=== PATIENT | male | born 1955 | race Caucasian/White ===

== ENCOUNTER 2016-05-17 07:14 | Inpatient (IN) | payer MEDICARE ==
[~2016-05-17] VITALS: Ht 170.2 cm; Wt 64.4 kg
[2016-05-17] VITALS (7 sets, daily range): BP systolic 89–134; BP diastolic 60–97; PULSE 62–95; RESP 14–18; TEMP 97.6–98.7; O2SAT 94–99
[~2016-05-17 07:14] MED LIST: ANDR1GEL TD; BACT800T5 PO; CLON.1 PO; EFFE37.5 PO; GABA800T PO; HYDRO10 PO; LEVO100T4 PO; SENN-15 PO; STOO100T PO; VENL37.5 PO
[2016-05-17] MEDS ORDERED: SODIUM CHLOR 0.9% 1000 ML INJ 1,000 ML IV SCH (07:24)
[2016-05-17] MEDS ORDERED: SODIUM CHLORIDE 0.9% FLUSH 10 ML FLUSH IVF PRN (07:30)
--- NOTE | 2016-05-17 07:38 | PD ---
HPI Chief Complaint: syncope Time Seen by Provider: 07:24 Travel History International Travel<30 days: No Contact w/Intl Traveler<30days: No History of Present Illness HPI This is a 60-year-old male who presents to the emergency department with a history of stage IV melanoma having completed an experimental treatment which left him with multiple side effects including hypo-pituitarism, hypothyroidism, gastroparesis, and chronic fatigue who presents to the emergency department today having had a fall. The patient reports that he's been very weak over the past several days. He was walking in the bathroom this morning and he didn't make it any fell hitting his head. He feels weak and has a moderate headache, constant, throbbing, with no associated vomiting. 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, THERMOREGULATION ISSUES) GERD: Yes Genitourinary: No Hypertension: Yes Musculoskeletal: Yes Neurologic: No Psychiatric: Yes (INSOMNIA) Reproductive: No Respiratory: No Immunizations Current: Yes Radiation Therapy: Yes (TO NECK X5 TREATMENTS) Thyroid Disease: Yes Past Surgical History Abdominal Surgery: Yes (APPENDECTOMY) Appendectomy: Yes Other Surgery: Yes (SCALP RESECTION, L&R NECK TOT LYMPH NODE RESECT) Social History Alcohol Use: No Tobacco Use: No Substance Use: No Allergies-Medications (Allergen,Severity, Reaction): Coded Allergies: Lexapro (Verified Allergy, Severe, SEIZURES, 05/17/16) *MDRO Multi-Drug Resistant Organism (Verified Adverse Reaction, Unknown, ) MRSA PCR screen (nares) POSITIVE - 09/14/15 Reported Meds & Prescriptions Reported Meds & Active Scripts Active Reported Oxycodone-Acetaminophen 10-325 mg Tab 1 Tab PO Q4H PRN Effexor (Venlafaxine HCl) 37.5 Mg Tab 37.5 Mg PO DAILY Review of Systems Except as stated in HPI: all other systems reviewed are Neg Physical Exam Narrative GENERAL: Chronically ill-appearing SKIN: Dry with skin tenting HEAD: Atraumatic. Normocephalic, temporal wasting. EYES: Pupils equal and round. No injection or drainage. ENT: Dry mucous membranes NECK: Trachea midline. CARDIOVASCULAR: Regular rate and rhythm. No murmur appreciated. RESPIRATORY: Clear to auscultation. Breath sounds equal bilaterally. GASTROINTESTINAL: Abdomen soft, non-tender, nondistended. MUSCULOSKELETAL: No obvious deformities. NEUROLOGICAL: Awake and alert. No obvious cranial nerve deficits. Moving all extremities. PSYCHIATRIC: Awake to answer questions, somnolent but also makes poor eye contact, depressed mood Data Data Last Documented VS Vital Signs Date Time Temp Pulse Resp B/P Pulse Ox O2 Delivery O2 Flow Rate FiO2 05/17/16 07:57 16 99 Room Air 05/17/16 07:47 56 05/17/16 07:42 97.6 102/67 Orders Complete Blood Count With Diff (05/17/16 07:24) Comprehensive Metabolic Panel (05/17/16 07:24) Thyroid Stimulating Hormone (05/17/16 07:24) Urinalysis - C+S If Indicated (05/17/16 07:24) Ct Brain W/O Iv Contrast(Rout) (05/17/16 07:24) Blood Glucose (05/17/16 07:24) Ecg Monitoring (05/17/16 07:24) Iv Access Insert/Monitor (05/17/16 07:24) Oximetry (05/17/16 07:24) Sodium Chloride 0.9% Flush (Ns Flush) (05/17/16 07:30) Sodium Chlor 0.9% 1000 Ml Inj (Ns 1000 M (05/17/16 07:24) Labs Laboratory Tests Test 05/17/16 07:27 White Blood Count 4.7 TH/MM3 Red Blood Count 4.60 MIL/MM3 Hemoglobin 12.4 GM/DL Hematocrit 37.0 % Mean Corpuscular Volume 80.3 FL Mean Corpuscular Hemoglobin 26.9 PG Mean Corpuscular Hemoglobin 33.6 % Concent Red Cell Distribution Width 14.5 % Platelet Count 196 TH/MM3 Mean Platelet Volume 8.6 FL Neutrophils (%) (Auto) 61.2 % Lymphocytes (%) (Auto) 27.8 % Monocytes (%) (Auto) 5.9 % Eosinophils (%) (Auto) 2.2 % Basophils (%) (Auto) 2.9 % Neutrophils # (Auto) 2.9 TH/MM3 Lymphocytes # (Auto) 1.3 TH/MM3 Monocytes # (Auto) 0.3 TH/MM3 Eosinophils # (Auto) 0.1 TH/MM3 Basophils # (Auto) 0.1 TH/MM3 CBC Comment DIFF FINAL Differential Comment Sodium Level 139 MEQ/L Potassium Level 3.7 MEQ/L Chloride Level 102 MEQ/L Carbon Dioxide Level 26.6 MEQ/L Anion Gap 10 MEQ/L Blood Urea Nitrogen 18 MG/DL Creatinine 1.20 MG/DL Estimat Glomerular Filtration 62 ML/MIN Rate Random Glucose 89 MG/DL Calcium Level 8.9 MG/DL Total Bilirubin 0.3 MG/DL Aspartate Amino Transf 35 U/L (AST/SGOT) Alanine Aminotransferase 21 U/L (ALT/SGPT) Alkaline Phosphatase 33 U/L Total Protein 6.5 GM/DL Albumin 3.5 GM/DL Thyroid Stimulating Hormone 11.600 uIU/ML 3rd Gen [facility] Medical Decision Making Medical Screen Exam Complete: Yes Emergency Medical Condition: Yes Interpretation(s) Afebrile, no tachycardia, normotensive No leukocytosis Electrolytes are reassuring TSH is 11.6 EKG: sinus bradycardia, QTc 489 Differential Diagnosis Syncope, arrhythmia, electrolyte abnormality, hypothyroidism Narrative Course This is a 60-year-old male who presents to the emergency department having had an episode of syncope hitting his head this morning. He has a reported history of multiple chronic complications of an experimental agent that he was treated with for metastatic melanoma. Patient also has a significant psychiatric history with a suicide attempt in 2016. Here he was placed on a monitor and an IV was established. On physical exam he appears depressed with poor eye contact , lowered speech, hopelessness and helplessness. EKG demonstrated sinus bradycardia with a QTC of 489. He is on Effexor which is a QT prolonging agents. Labs were reassuring except for elevated TSH likely in the setting of significant hypothyroidism. Patient will be admitted for syncope in the setting of a prolonged QT, and we can restart his Synthroid and consult psychiatry regarding a change in his psychiatric medications. Diagnosis Primary Impression: Syncope Qualified Code: R55 - Syncope, unspecified syncope type Additional Impression: Prolonged QT interval Admitting Information Admitting Physician Requests: Admit Chloé Spivey MD May 17, 2016 07:38
[2016-05-17 07:43] LABS: AUTOMATED NEUTROPHIL # 2.9 TH/MM3 (1.8-7.7); BASOPHIL # 0.1 TH/MM3 (0-0.2); BASOPHIL % 2.9 % (0.0-2.0); EOSINOPHIL # 0.1 TH/MM3 (0-0.4); EOSINOPHIL % 2.2 % (0.0-4.0); HEMO FLAGS DIFF FINAL; LYMPH % 27.8 % (9.0-44.0); LYMPHOCYTE # 1.3 TH/MM3 (1.0-4.8); MEAN CELL VOLUME 80.3 FL (80.0-100.0); MEAN CORPUSCULAR HEMOGLOBIN 26.9 PG (27.0-34.0); MEAN CORPUSCULAR HGB CONC 33.6 % (32.0-36.0); MONO % 5.9 % (0.0-8.0); NEUT % 61.2 % (16.0-70.0); PLATELET COUNT 196 TH/MM3 (150-450); RED CELL DISTRIBUTION WIDTH 14.5 % (11.6-17.2); WHITE BLOOD COUNT 4.7 TH/MM3 (4.0-11.0)
[2016-05-17 07:51] LABS: CHLORIDE 102 MEQ/L (98-107); POTASSIUM 3.7 MEQ/L (3.5-5.1); SODIUM (NA) 139 MEQ/L (136-145)
[2016-05-17 07:55] LABS: ANION GAP 10 MEQ/L (5-15); BICARBONATE 26.6 MEQ/L (21.0-32.0); BLOOD UREA NITROGEN 18 MG/DL (7-18)
[2016-05-17 07:58] LABS: ALT (GPT) 21 U/L (12-78); AST (GOT) 35 U/L (15-37); GLOMERULAR FILTRATION RATE 62 ML/MIN (>89)
[2016-05-17 08:00] LABS: TOTAL BILIRUBIN ADULT 0.3 MG/DL (0.2-1.0)
[2016-05-17 08:01] LABS: ALKALINE PHOSPHATASE 33 U/L (45-117)
[2016-05-17] MEDS ORDERED: OXYC1TAB36 PO (08:15)
[2016-05-17] MEDS ORDERED: VENL37.5 PO (08:15)
--- NOTE | 2016-05-17 08:25 | RADHPO ---
EXAM DATE/TIME: 05/17/2016 07:59 [facility] COMPARISON: CT BRAIN W/O CONTRAST, October 16, 2013, 1:04. INDICATIONS : Altered mental status. RADIATION DOSE: 62.49 CTDIvol (mGy) MEDICAL HISTORY : Cardiovascular disease. Neck cancer SURGICAL HISTORY : None. ENCOUNTER: Initial ACUITY: 1 day PAIN SCALE: 2/10 LOCATION: cranial TECHNIQUE: Multiple contiguous axial images were obtained of the head. Using automated exposure control and adj ustment of the mA and/or kV according to patient size, radiation dose was kept as low as reasonably a chievable to obtain optimal diagnostic quality images. FINDINGS: CEREBRUM: The ventricles are normal for age. No evidence of midline shift, mass lesion, hemorrhage or acute in farction. No extra-axial fluid collections are seen. POSTERIOR FOSSA: The cerebellum and brainstem are intact. The 4th ventricle is midline. The cerebellopontine angle i s unremarkable. EXTRACRANIAL: The visualized portion of the orbits is intact. SKULL: There is soft tissue swelling over the left orbit without fracture. CONCLUSION: Intracranial contents are unremarkable. Soft tissue swelling left orbit without fracture.. Julio Chan MD FACR on May 17, 2016 at 8:22 Board Certified Radiologist. This report was verified electronically.
[2016-05-17] MEDS ORDERED: ACETAMINOPHEN 325 MG TAB PO PRN (11:00)
[2016-05-17] MEDS ORDERED: NALOXONE HCL 0.4 MG/ML AMP IV PRN (11:00)
[2016-05-17] MEDS ORDERED: MAGNESIUM HYDROXIDE SUSP 30 ML CUP PO PRN (11:00)
[2016-05-17] MEDS ORDERED: SODIUM CHLORIDE 0.9% FLUSH 10 ML FLUSH IV FLUSH PRN (11:00)
[2016-05-17] MEDS ORDERED: ONDANSETRON HCL 4 MG/2 ML VIAL IVP PRN (11:00)
--- NOTE | 2016-05-17 11:55 | RADHPO ---
EXAM DATE/TIME: 05/17/2016 11:37 [facility] COMPARISON: CHEST SINGLE AP, September 15, 2015, 3:56. INDICATIONS : Mid lower chest, mid upper abdomen pain MEDICAL HISTORY : None. SURGICAL HISTORY : None. ENCOUNTER: Subsequent ACUITY: 1 day PAIN SCORE: 8/10 LOCATION: Bilateral lower chest middle FINDINGS: Surgical clips are seen in the apex of the left lung. Right lung is clear. Heart and pulmonary vasc ularity are normal. Portion of bony skeleton visualized is unremarkable. CONCLUSION: Negative for acute process. Julio Chan MD FACR on May 17, 2016 at 11:50 Board Certified Radiologist. This report was verified electronically.
[2016-05-17] MEDS ORDERED: LEVOTHYROXINE SODIUM 75 MCG TAB PO SCH (12:00)
[2016-05-17 12:27] LABS: CREATINE KINASE 98 U/L (39-308)
[2016-05-17] MEDS: ENOXAPARIN SODIUM 40 MG/0.4 ML SYRINGE SQ SCH (13:24)
[2016-05-17] MEDS: FLUDROCORTISONE ACETATE 0.1 MG TAB PO SCH (13:24)
[2016-05-17] MEDS: oxyCODONE/ACETAMINOPHEN 10 MG/325 MG TAB PO PRN ×3 (13:24→22:30)
[2016-05-17] MEDS: SODIUM CHLOR 0.9% 1000 ML INJ 1,000 ML IV SCH (13:27)
[2016-05-17 16:00] LABS: FREE T3 1.72 PG/ML (2.18-3.98); FREE T4 0.35 NG/DL (0.76-1.46)
--- NOTE | 2016-05-17 16:28 | HHI.HP ---
[facility] Baylee Lorenzo MD Admission Diagnosis syncope, prolonged qt Diagnoses: Travel History International Travel<30 Days: No Contact w/Intl Traveler <30 Da: No Traveled to Known Affected Are: No History of Present Illness This is a 60-year-old male with past medical history of metastatic multiple myeloma status post resection from shoulder scalp and lymph node dissection of neck in 2007, previous self-inflicted suicide attempt with laceration to neck and severing of carotid artery in August 2015, 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 The patient is supposed to be on hydrocortisone as well as Synthroid however he stopped taking those many months ago because he felt they were not helping. The patient states he has seen numerous psychiatrists as well as aquatic director. His primary care physician is Dr. Lorenzo. Currently he takes only Percocet 10 mg as needed for chronic neck pain as well as Effexor 37.5 mg daily. He states his psychiatrist wants him to take a higher dose but that he declines to do so. His main complaint is that he has been getting dizzy when he stands up and that it's taking longer for the dizziness to go away. The dizziness disease by sitting down. The patient states that he supposes this is the effect of him not taking his hydrocortisone. He used to take 10 mg twice a day and used to take Synthroid 125 g daily. The patient also notes that he has been getting more depressed recently and denies any suicidal ideation or plan. However he states he does get teary. Several times during the interview he makes offhanded comments such as "that would be fine if I ." In reference to his prolonged QTc interval. In the emergency department he was found to be significantly orthostatic. He also was noted to have a prolonged QTc interval which is a new finding on his EKG. He scored high on the sad assessment by the nurse and per the nurse he has refused to allow her to look inside his bag. The nurse also noticed scars on his right arm which the patient states was self-inflicted in August. He also indicated to both me and his nurse that his left him this morning. Review of Systems Constitutional: COMPLAINS OF: Chills, Dizziness, DENIES: Fever Endocrine: COMPLAINS OF: Heat/cold intolerance (the patient complains of sweating episodes and feeling cold at times) Eyes: DENIES: Diplopia Ears, nose, mouth, throat: DENIES: Throat pain, Hoarseness Respiratory: DENIES: Cough, Shortness of breath Cardiovascular: COMPLAINS OF: Syncope, DENIES: Chest pain, Palpitations, Dyspnea on Exertion Gastrointestinal: COMPLAINS OF: Abdominal pain (the patient complains of chronic abdominal pain which is epigastric.), Nausea, DENIES: Diarrhea, Vomiting Musculoskeletal: COMPLAINS OF: Muscle aches, Neck pain (patient complains of chronic neck pain related to his radical cervical lymph node dissection) Integumentary: DENIES: Pruritus, Rash Hematologic/lymphatic: DENIES: Lymphadenopathy Neurologic: COMPLAINS OF: Headache (patient currently complains of headache), DENIES: Localized weakness Psychiatric: COMPLAINS OF: Depression (patient states that he has been getting "more teary" then usual however he denies suicidal ideation or plans to harm himself), DENIES: Confusion, Suicidal Ideation Past Family Social History Past Medical History Self-inflicted right carotid artery laceration, tracheal laceration and bilateral arm laceration in August 2015 Chronic pain syndrome Hypopituitarism from side effects of chemotherapy Stage IV melanoma in remission status post multiple resections, radiation to the neck Noncompliance Depression Past Surgical History Melanoma resection from scalp, right shoulder, appendectomy, cholecystectomy, repair of right carotid artery laceration and laceration to trachea as well as multiple arm lacerations Reported Medications Allergies Coded Allergies Type Severity Reaction Last Updated Verified Lexapro Allergy Severe SEIZURES 05/17/16 Yes *MDRO Multi-Drug Resistant Organism Adverse Reaction Unknown 05/17/16 Yes Active Scripts Medications Dose Route/Sig Days Date Category Oxycodone-Acetaminophen 10-325 mg Tab 1 Tab PO Q4H PRN 05/17/16 Reported Effexor (Venlafaxine HCl) 37.5 Mg Tab 37.5 Mg PO DAILY 05/17/16 Reported Allergies: Coded Allergies: Lexapro (Verified Allergy, Severe, SEIZURES, 05/17/16) *MDRO Multi-Drug Resistant Organism (Verified Adverse Reaction, Unknown, ) MRSA PCR screen (nares) POSITIVE - 09/14/15 Family History Reviewed and noncontributory Social History As per history of present illness. Currently denies any alcohol or drug use. Physical Exam Vital Signs Vital Signs Date Time Temp Pulse Resp B/P Pulse Ox O2 Delivery O2 Flow Rate FiO2 05/17/16 12:00 95 98/86 106/77 05/17/16 12:00 97.7 70 18 134/97 99 05/17/16 09:24 56 16 131/79 61 17 89/60 05/17/16 09:00 66 16 114/84 99 Room Air 05/17/16 07:57 16 99 Room Air 05/17/16 07:47 56 16 99 Room Air 05/17/16 07:42 97.6 62 16 102/67 97 Physical Exam GENERAL: This is a pale lean male gentleman in no apparent distress. SKIN: Warm and dry. Multiple scars over neck. HEAD: The patient has a scalp scar with deformity of the top of his skull. Left eye periorbital ecchymosis and swelling of the upper eyelid. EYES: No scleral icterus. No injection or drainage. NECK: Supple, trachea midline. No JVD or lymphadenopathy. CARDIOVASCULAR: Regular rate and rhythm without murmurs, gallops, or rubs. RESPIRATORY: Breath sounds equal and clear to auscultation bilaterally. No accessory muscle use. GASTROINTESTINAL: Abdomen soft, non-tender, nondistended. EXTREMITIES: No cyanosis, or edema. NEUROLOGICAL: Awake, alert, and oriented x 3. Non-focal. Laboratory Laboratory Tests Test 05/17/16 05/17/16 07:27 11:10 White Blood Count 4.7 Red Blood Count 4.60 Hemoglobin 12.4 Hematocrit 37.0 Mean Corpuscular Volume 80.3 Mean Corpuscular Hemoglobin 26.9 Mean Corpuscular Hemoglobin 33.6 Concent Red Cell Distribution Width 14.5 Platelet Count 196 Mean Platelet Volume 8.6 Neutrophils (%) (Auto) 61.2 Lymphocytes (%) (Auto) 27.8 Monocytes (%) (Auto) 5.9 Eosinophils (%) (Auto) 2.2 Basophils (%) (Auto) 2.9 Neutrophils # (Auto) 2.9 Lymphocytes # (Auto) 1.3 Monocytes # (Auto) 0.3 Eosinophils # (Auto) 0.1 Basophils # (Auto) 0.1 CBC Comment DIFF FINAL Differential Comment Sodium Level 139 Potassium Level 3.7 Chloride Level 102 Carbon Dioxide Level 26.6 Anion Gap 10 Blood Urea Nitrogen 18 Creatinine 1.20 Estimat Glomerular Filtration 62 Rate Random Glucose 89 Calcium Level 8.9 Total Bilirubin 0.3 Aspartate Amino Transf 35 (AST/SGOT) Alanine Aminotransferase 21 (ALT/SGPT) Alkaline Phosphatase 33 Total Protein 6.5 Albumin 3.5 Thyroid Stimulating Hormone 11.600 3rd Gen Total Creatine Kinase 98 Troponin I LESS THAN 0.02 Free Thyroxine 0.35 Free Triiodothyronine (T3) 1.72 pg/dL Result Diagram: 05/17/16 0727 05/17/1627 Imaging Initial EKG shows normal sinus rhythm with a prolonged QTc interval of 488 ms, second EKG shows normal sinus rhythm with prolonged QTC interval of 470 ms. Assessment and Plan Assessment and Plan -Dizziness and falls, with syncope. I suspect related to the orthostatic hypotension. Cannot rule out arrhythmia given the prolonged QTC syndrome. We' ll continue with IV fluid hydration, serial orthostatic vital signs. We'll restart him on hydrocortisone 10 mg twice a day. The patient is agreeable to restarting the hydrocortisone and seems to understand that this is likely causing his orthostasis. I will obtain an echocardiogram as well. Consider cardiology consultation. -Depression. The patient denies overt symptoms of suicidality however when I mentioned the dangers effective prolonged QTC which is possibly a side effect from the Effexor and how this may put him at risk for malignant arrhythmias the patient states "that would be fine" he is not allowing the nurse to look inside his bag and he scored high on this that assessment. Because of this I think it would be prudent to order a sitter and suicide precautions while psychiatry consultation is pending. Obviously we are holding his Effexor because of the possible association with the QTC prolongation. Patient is agreeable psychiatry consultation although he notes that he has had problems with Lexapro in the past. He does feel that the Effexor low dose has helped his mood and he states he has been compliant with it. -QTC prolongation. He is on a low dose of Effexor. He denies taking this other than as prescribed. This QTC prolongation is improved on second EKG. We' ll continue on telemetry monitoring and obtain a third EKG. Continue to hold Effexor. -Hypothyroidism, noncompliance. We'll resume him on his previous dose of 125 g of Synthroid daily. I did discuss with the patient that untreated hypothyroidism can worsen signs of depression. The patient is agreeable to restarting his Synthroid. -Chronic neck pain. Continue him on his Percocet. The patient notes that he has been taking an extra half tab as needed for breakthrough pain but has not disclosed this to his pain medicine physician yet. He does request an additional half tab in the morning. We'll give him oxycodone 5 mg in the morning. I did encourage him to discuss his pain regimen with his pain management physician after discharge from the hospital. -History of stage IV melanoma in remission, the patient has undergone multiple resections and radical cervical lymph node dissection as well as chemotherapy s/ p ipilimumab with the last course being in 2007. He currently does not follow with an oncologist. -Abdominal pain. He states he was diagnosed with esophagitis which was caused by potassium supplementation he was given in [facility] over January. The patient declines to take any PPI. He attributes the abdominal pain to gastroparesis. He denies any vomiting but does endorse occasional nausea. He does not take Reglan. He is tolerating regular diet at this time. -DVT prophylaxis with ambulation. Nguyen Quinones MD May 17, 2016 16:28
[2016-05-17 17:34] LABS: CREATINE KINASE 91 U/L (39-308)
[2016-05-17] MEDS: SODIUM CHLORIDE 0.9% FLUSH 10 ML FLUSH IV FLUSH SCH (21:00)
[2016-05-17] MEDS: HYDROCORTISONE 10 MG TAB PO SCH (22:30)
--- NOTE | 2016-05-17 23:55 | EKG ---
Date Performed: 05/17/2016 Time Performed: 17:16:18 PTAGE: 60 years EKG: Sinus rhythm . Poor R wave progression - probable normal variant Borderline ECG PREVIOUS TRACING : 05/17/2016 11.25 DOCTOR: Sarita Cowart Interpretating Date/Time 05/17/2016 23:53:57
[2016-05-18] VITALS: BP 136/91; PULSE 82; RESP 20; TEMP 98.1; O2SAT 99
--- NOTE | 2016-05-18 00:08 | EKG ---
Date Performed: 05/17/2016 Time Performed: 11:25:00 PTAGE: 60 years EKG: Sinus rhythm . Prolonged QT interval Poor R wave progression - probable normal variant Borderline ECG PREVIOUS TRACING : 05/17/2016 07.23 DOCTOR: Sarita Cowart Interpretating Date/Time 05/18/2016 00:06:17
--- NOTE | 2016-05-18 00:12 | EKG ---
Date Performed: 05/17/2016 Time Performed: 07:23:12 PTAGE: 60 years EKG: Sinus bradycardia Prolonged QT interval Borderline ECG PREVIOUS TRACING : 10/16/2013 00.15 DOCTOR: Sarita Cowart Interpretating Date/Time 05/18/2016 00:09:56
[2016-05-18] MEDS: oxyCODONE/ACETAMINOPHEN 10 MG/325 MG TAB PO PRN ×4 (02:42→15:20)
[2016-05-18 04:14] VITALS: BP 129/70; PULSE 88; RESP 16; TEMP 98; O2SAT 99
[2016-05-18] MEDS ORDERED: LEVOTHYROXINE SODIUM 75 MCG TAB PO SCH (06:00)
--- NOTE | 2016-05-18 07:07 | PD.CONS ---
Provisional Diagnosis Admission Date May 17, 2016 at 08:49 [place] I. 1. Dysthymia Rule out some degree of overlying adjustment reaction Also rule out component of mood disorder due to general medical condition, namely hypothyroidism [place]. 1. Some cluster C personality traits History of Present Illness Service Psychiatry Consult Requested By Dr. Quinones Reason for Consult QTc prolongation with Effexor; recs for alternatives. Primary Care Physician Baylee Lorenzo MD HPI Mr. Ozuna is a 60 year-old male with a history of depressive disorder who presented to the ED yesterday with complaints of syncope. QTc was initially significantly prolonged at 488ms. Patient was subsequently admitted under Dr. Quinones. Orthostasis is suspected as the etiology of patient's presenting symptoms, but the QTc has shortened off of patient's Effexor, and contribution from long-QT cannot be ruled out. Reviewing the electronic medical record, I note that the patient was admitted psychiatrically in September of last year, chiefly under Dr. Sylvester, following a suicide attempt by cutting. It appears he was stabilized at that time with his same dose of Effexor augmented with low-dose Remeron and Abilify. Additionally, I had seen the patient in consultation while he was on the medical floor before being transferred to the inpatient psychiatric unit during that hospitalization. Patient seen and examined. Chart reviewed. Sitter at the bedside. On my examination today, the patient presents as somewhat dysphoric. He reports that he has been having dizziness when standing for the last 1-2 years but came into the hospital because he became dizzy and "fell on my face" and sustained a black eye on the left. Patient reports that prior to admission he had continued to take his Effexor 37.5 mg daily, although it had been several months since he had seen his psychiatrist and so he was trying to stretch out his supply by taking some 75 mg tablets that he had every other day. Patient relates that his has recently filed for divorce and just before he was hospitalized she began packing up her things to leave. Consequently, patient describes his mood as "not a happy camper." He denies any hopeless or worthless feelings. He denies any suicidal ideation, intent or plan. The patient had apparently made some comments about it being fine if he to Dr. Quinones, but the patient insists now that he was just joking and says that he uses a dark sense of humor to cope. He does come across as somewhat wry and sarcastic at times. He says that he wants to live to pursue his hobbies, which include fishing. No hypomanic or manic symptoms. He denies audiovisual hallucinations. I can elicit no delusional beliefs. He does have some degree of somatic preoccupation, although he does seem to have a variety of medical issues and so these may be genuine concerns. The remainder of the psychiatric ROS is negative. Past psychiatric history: Patient has a history of depression. He is followed on an outpatient basis by a Dr. Jones, but patient says that he hasn't seen a provider in several months. He denies any interval psychiatric admissions or suicide attempts. He was following with a psychotherapist. He reports that he feels that he has done the best with the Effexor, and he is resistant to changing medications now. Family history: Patient reports a brother with schizophrenia who also completed suicide. No other family psychiatric history. Chemical dependency history: Patient denies any abuse of drugs or alcohol. Social history: This is unchanged from my previous assessment except that patient's of 26 years is now asking for divorce and apparently moved out of the house yesterday. The patient is disabled with no children. With the patient's permission, I did place a call to his , Rubia Ozuna, for collateral at the number listed in the EMR. I left a voicemail requesting a call back. Review of Systems Except as stated in HPI: all other systems reviewed are Neg (and below) Endocrine: COMPLAINS OF: Heat/cold intolerance Gastrointestinal: COMPLAINS OF: Abdominal pain Past Family Social History Coded Allergies: Lexapro (Verified Allergy, Severe, SEIZURES, 05/17/16) *MDRO Multi-Drug Resistant Organism (Verified Adverse Reaction, Unknown, ) MRSA PCR screen (nares) POSITIVE - 09/14/15 Past Medical History See EMR. Patient has a history of advanced melanoma status post experimental chemotherapeutic treatment. Reported Medications Oxycodone-Acetaminophen 10-325 mg Tab1 Tab PO Q4H PRN (PAIN) Ref 0 05/17/16 Venlafaxine (Effexor)37.5 Mg Tab37.5 Mg PO DAILY #60 TAB Ref 0 05/17/16 Current Medications Medications (Trade) Dose Ordered Sig/Alireza Route Start Time Stop Time Status Last Admin (NS 1000 ml Inj) 1,000 ml @ 100 mls/hr Q10H IV 05/17/16 10:50 05/17/16 13:27 (NS Flush) 2 ml UNSCH PRN IV FLUSH 05/17/16 11:00 (NS Flush) 2 ml BID IV FLUSH 05/17/16 21:00 05/17/16 21:00 (Tylenol) 650 mg Q4H PRN PO 05/17/16 11:00 (Zofran Inj) 4 mg Q6H PRN IVP 05/17/16 11:00 (Milk Of Magnesia Liq) 30 ml Q12H PRN PO 05/17/16 11:00 (Lovenox Inj) 40 mg Q24H SQ 05/17/16 12:00 05/17/16 13:24 (Narcan Inj) 0.4 mg UNSCH PRN IV 05/17/16 11:00 (Florinef) 0.1 mg DAILY PO 05/17/16 12:00 05/17/16 13:24 (Percocet 10-325 Mg) 1 tab Q4H PRN PO 05/17/16 12:30 05/18/16 06:21 (Synthroid) 125 mcg DAILY@0600 PO 05/18/16 06:00 05/18/16 06:20 (Cortef) 10 mg BID PO 05/17/16 21:00 05/17/16 22:30 (Roxicodone) 5 mg DAILY PO 05/18/16 09:00 Family History See above Social History See above Patient's Strengths (min. 2) Intelligent. Verbally fluent. Physical Exam Physical examination completed by primary team. On my examination today, patient is somewhat ill-appearing. There appears to be some sort of chronic deformity in his skull. He has a black eye on the left. No motoric abnormalities noted. Laboratories reviewed: Vital Signs Vital Signs Date Time Temp Pulse Resp B/P Pulse Ox O2 Delivery O2 Flow Rate FiO2 05/18/16 04:14 98.0 88 16 129/70 99 05/17/16 09:00 Room Air I/O 05/17/16 05/17/16 05/18/16 08:00 16:00 00:00 Intake Total 1000 ml 240 ml Balance 1000 ml 240 ml Lab Results Item Value Date Time White Blood Count 4.7 TH/MM3 05/17/16726 Hemoglobin 12.4 GM/DL L 05/17/16726 Platelet Count 196 TH/MM3 05/17/16726 Sodium Level 139 MEQ/L 05/17/16726 Potassium Level 3.7 MEQ/L 05/17/16726 Chloride Level 102 MEQ/L 05/17/16726 Carbon Dioxide Level 26.6 MEQ/L 05/17/16726 Blood Urea Nitrogen 18 MG/DL 05/17/16726 Creatinine 1.20 MG/DL 05/17/16726 Thyroid Stimulating Hormone 3rd Gen 11.600 uIU/ML H 05/17/16726 Aspartate Amino Transf (AST/SGOT) 35 U/L 05/17/16726 Alanine Aminotransferase (ALT/SGPT) 21 U/L 05/17/16726 Alkaline Phosphatase 33 U/L L 05/17/16726 Free Thyroxine 0.35 NG/DL L 05/17/16 1110 Free Triiodothyronine (T3) pg/dL 1.72 PG/ML L 05/17/[address] was read as no acute intracranial process Mental Status Examination Patient is in hospital gown. He is somewhat disheveled but maintaining basic hygiene. He is awake and alert and oriented 3. No evidence of delirium. No abnormal motor movements noted. Speech is within normal limits for rate, tone and volume. Language and fund of knowledge seemed average or slightly above average. Mood is somewhat dysphoric and affect is restricted. Thought process linear. No loosening of associations. No evident delusions. Denies audiovisual hallucinations. Denies suicidal ideation, intent or plan. Denies homicidal ideation, intent or plan. Insight and judgment seem fair to fair-to- poor. Assessment & Plan Problem List: (1) Dysthymia ICD Code: F34.1 Assessment & Plan This is a 60-year-old male with psychiatric history as detailed above who presented day before yesterday to the ED with complaints of syncope, possibly due to orthostatic hypotension. Psychiatry is consulted because patient's QTc was noted to be significantly prolonged, and there was concern that this could be contributing to his syncope and also could be related to his Effexor. Patient's QTc has subsequently shortened since Effexor has been held, and Effexor is occasionally associated with QTc prolongation in the literature. If Effexor is felt to be causative agent for QTc prolongation, and if degree of QTc prolongation is felt to be clinically significant, patient would likely benefit from a switch to a different agent. He reports a history of poor response to Lexapro, but he apparently tolerated Remeron well on the inpatient unit. Given the complexity of the case, I have strongly recommended that the patient consider voluntary psychiatric hospitalization following medical stabilization for this purpose, but he has declined. He presently denies SI or HI, and his degree of psychiatric symptomatology is not so severe at present that I can support involuntary psychiatric hospitalization at this time. However, I do believe he is at chronic, if not acute or imminent, elevated risk for self-harm owing to several risk factors including chronic pain conditions reportedly related to his history of cancer treatment. I believe his psychiatric issues can be managed best at this time by taking the following steps: --Given good history of tolerability with Remeron, consider placing the patient back on Remeron 15mg qHS. Although many psychotropics can be associated with some degree of QTc prolongation, and Remeron is no different in this regard, it is rarely associated with this issue. I would recheck an EKG after 2-3 doses to see if there is any QTc prolongation. --Patient should be scheduled with close follow up with outpatient psychiatrist , ideally within 7-10 days of discharge. --If the patient is willing to reconsider voluntary psychiatric hospitalization for stabilization on medications, I would be highly supportive of this. --I will ask Dr. Valencia to follow up if the patient remains inpatient next week. Thank you for this consultation. Discharge Planning Per primary team. Pt does not meet BA criteria at this time and is declining voluntary hospitalization. Request HC Surrog/Guard Advoc?: No Faraz Torres MD May 18, 2016 07:06
[2016-05-18 07:33] LABS: BASOPHIL % 1.1 % (0.0-2.0); EOSINOPHIL # 0.1 TH/MM3 (0-0.4); HEMATOCRIT 36.5 % (39.0-51.0); HEMO FLAGS DIFF FINAL; LYMPH % 32.2 % (9.0-44.0); LYMPHOCYTE # 1.1 TH/MM3 (1.0-4.8); MEAN CELL VOLUME 81.2 FL (80.0-100.0); MONO % 8.2 % (0.0-8.0); NEUT % 56.5 % (16.0-70.0); PLATELET COUNT 214 TH/MM3 (150-450); RED CELL DISTRIBUTION WIDTH 14.4 % (11.6-17.2); WHITE BLOOD COUNT 3.5 TH/MM3 (4.0-11.0)
[2016-05-18 07:47] LABS: BICARBONATE 26.8 MEQ/L (21.0-32.0)
[2016-05-18 08:00] VITALS: BP 116/80; PULSE 89; RESP 16; TEMP 98.5; O2SAT 97
[2016-05-18] MEDS: FLUDROCORTISONE ACETATE 0.1 MG TAB PO SCH (09:10)
[2016-05-18] MEDS: HYDROCORTISONE 10 MG TAB PO SCH (09:11)
[2016-05-18] MEDS: SODIUM CHLORIDE 0.9% FLUSH 10 ML FLUSH IV FLUSH SCH (09:11)
[2016-05-18 09:54] LABS: BLOOD, URINE TRACE (NEG); GLUCOSE,URINE NEG (NEG); KETONE, URINE TRACE mg/dL (NEG); NITRITE,URINE NEG (NEG)
[2016-05-18 10:01] LABS: COMMENT (UR) CULT NOT INDICATED; CULTURE IF INDICATED CULT NOT INDICATED; METHOD OF COLLECTION CATH; RBC, URINE 0-3 /hpf (0-3); URINE COLOR YELLOW (YELLW/STRAW)
[2016-05-18] MEDS: SODIUM CHLOR 0.9% 1000 ML INJ 1,000 ML IV SCH (11:29)
[2016-05-18] MEDS: ENOXAPARIN SODIUM 40 MG/0.4 ML SYRINGE SQ SCH (11:29)
--- NOTE | 2016-05-18 11:38 | HHI.PR ---
Subjective Remarks Patient is in good spirits today. He states that he was joking yesterday and apologizes for the misunderstanding. Denies suicidality. Dizziness has improved. Objective Vitals Vital Signs Date Time Temp Pulse Resp B/P Pulse Ox O2 Delivery O2 Flow Rate FiO2 05/18/16 08:00 98.5 89 16 116/80 97 05/18/16 04:14 98.0 88 16 129/70 99 05/18/16 00:00 98.1 82 20 136/91 99 05/17/16 20:08 98.7 76 14 130/78 98 05/17/16 16:00 98.0 71 17 131/95 98 97/85 103/78 05/17/16 12:00 95 98/86 106/77 05/17/16 12:00 97.7 70 18 134/97 99 I/O 05/17/16 05/17/16 05/17/16 05/18/16 05/18/16 05/18/16 07:00 15:00 23:00 07:00 15:00 23:00 Intake Total 1000 ml 240 ml Balance 1000 ml 240 ml Intake Oral 240 ml IV Total 1000 ml # Voids 1 2 # Bowel Movements 0 Result Diagram: 05/18/1671605/18/16716 Objective Remarks GENERAL: This is a pale lean male gentleman in no apparent distress. SKIN: Warm and dry. Multiple scars over neck. HEAD: The patient has a scalp scar with deformity of the top of his skull. Left eye periorbital ecchymosis and swelling of the upper eyelid. EYES: No scleral icterus. No injection or drainage. NECK: Supple, trachea midline. No JVD or lymphadenopathy. CARDIOVASCULAR: Regular rate and rhythm without murmurs, gallops, or rubs. RESPIRATORY: Breath sounds equal and clear to auscultation bilaterally. No accessory muscle use. GASTROINTESTINAL: Abdomen soft, non-tender, nondistended. EXTREMITIES: No cyanosis, or edema. NEUROLOGICAL: Awake, alert, and oriented x 3. Non-focal. A/P Assessment and Plan -Dizziness and falls, with syncope. I suspect related to the orthostatic hypotension. Cannot rule out arrhythmia given the prolonged QTC syndrome. Effexor was held with resolution of the prolonged QTC. He was resumed on hydrocortisone 10 mg twice a day. He is still orthostatic however standing blood pressure is improved. Echocardiogram is pending. Consult physical therapy and we will see how he does with gait today. Patient agrees to stay off the Effexor. He would like to stay on the Remeron and agrees to follow-up with his primary care physician Dr. Delgado next week. We will resume Remeron tonight as per Dr. Torres recommendations and he will need to obtain an EKG in 2-3 days with his primary care physician. I discussed this in detail with the patient who voices understanding. -Depression. The patient denies overt symptoms of suicidality. however yesterday when I mentioned the dangers effective prolonged QTC which is possibly a side effect from the Effexor and how this may put him at risk for malignant arrhythmias the patient stated yesterday "that would be fine" and he also did not allow the nurse to look inside his bag and he scored high on the SAD assessment. Today he is stating that he was joking which is consistent with his sardonic wit. Appreciate psychiatry consultation. I do not think he poses a suicide risk at this time thus will DC sitter. Patient is advised to discontinue Effexor because of the possible association with the QTC prolongation. Appreciate psychiatry consultation. Recommending to resume Remeron and check an EKG in 2-3 days. Close outpatient follow-up with his psychiatrist. Patient states he has not seen a psychiatrist since November but agrees to follow-up. -QTC prolongation. Resolved. He is on a low dose of Effexor which was held at discharge. Resume on Remeron. He will need an EKG after 2-3 doses with his primary care physician Dr. Delgado. -Hypothyroidism, noncompliance. He has been resumed on his previous dose of 125 g of Synthroid daily. I did discuss with the patient that untreated hypothyroidism can worsen signs of depression. The patient is agreeable to restarting his Synthroid. -Chronic neck pain. Continue him on his Percocet. The patient notes that he has been taking an extra half tab as needed for breakthrough pain but has not disclosed this to his pain medicine physician yet. He does request an additional half tab in the morning. We are giving him oxycodone 5 mg in the morning. I did encourage him to discuss his pain regimen with his pain management physician after discharge from the hospital. -History of stage IV melanoma in remission, the patient has undergone multiple resections and radical cervical lymph node dissection as well as chemotherapy s/ p ipilimumab with the last course being in 2007. He currently does not follow with an oncologist. -Abdominal pain. He states he was diagnosed with esophagitis which was caused by potassium supplementation he was given in [facility] over January. He also has been diagnosed with gastroparesis. The patient declines to take any PPI. He attributes the abdominal pain to gastroparesis. He denies any vomiting but does endorse occasional nausea. He does not take Reglan citing fear of tardive dyskinesia. He is tolerating regular diet at this time. He also has Zantac at home and I encouraged him to take that regularly. -DVT prophylaxis with ambulation. Discharge Planning Possible discharge home this afternoon if he ambulates well with physical therapy. Patient instructed to follow-up with Dr. Lorenzo in 2-3 days, and with his psychiatrist within 7-10 days. Nguyen Quinones MD May 18, 2016 11:37
[2016-05-18] MEDS ORDERED: MIRTA15 PO (11:59)
[2016-05-18 12:00] VITALS: BP 140/112; PULSE 80; RESP 18; TEMP 98.6; O2SAT 100
[2016-05-18] MEDS ORDERED: HYDRO10 PO (12:14)
[2016-05-18] MEDS ORDERED: LEVO.075 PO (12:14)
--- NOTE | 2016-05-18 21:02 | EKG ---
Date Performed: 05/17/2016 Time Performed: 22:32:46 PTAGE: 60 years EKG: Sinus rhythm . Rightward axis Poor R wave progression - probable normal variant Inferior T wave changes are nonspe cific Borderline ECG PREVIOUS TRACING : 05/17/2016 17.16 DOCTOR: Sarita Cowart Interpretating Date/Time 05/18/2016 21:01:20
--- NOTE | 2016-05-18 23:01 | EC ---
Study Study Date:05/18/2016 STUDY CONCLUSIONS SUMMARY - Left ventricle: The cavity size was normal. Wall thickness was normal. Systolic function was normal. The estimated ejection fraction was in the range of 60% to 65%. Wall motion was normal; there were no regional wall motion abnormalities. Doppler parameters are consistent with abnormal left ventricular relaxation (grade 1 diastolic dysfunction). - Pulmonary arteries: PA peak pressure: 32mm Hg (S). If LV function is below 40, please consider prescribing an ACEI or ARB or document rationale for non-use. PROCEDURE DATA STUDY STATUS: Elective. Procedure: Transthoracic echocardiography. Image quality was good. Scanning was performed from the parasternal, apical, and subcostal acoustic windows. Study completion: The patient tolerated the procedure well. Transthoracic echocardiography. M-mode, complete 2D, complete spectral Doppler, and color Doppler. Patient status: Inpatient. CARDIAC ANATOMY LEFT VENTRICLE: The cavity size was normal. Wall thickness was normal. Systolic function was normal. The estimated ejection fraction was in the range of 60% to 65%. Wall motion was normal; there were no regional wall motion abnormalities. Doppler parameters are consistent with abnormal left ventricular relaxation (grade 1 diastolic dysfunction). AORTIC VALVE: Trileaflet; mildly thickened leaflets. Doppler: Transvalvular velocity was within the normal range. There was no stenosis. No regurgitation. AORTA: Aortic root: The aortic root was normal in size. MITRAL VALVE: Structurally normal valve. Doppler: Transvalvular velocity was within the normal range. There was no evidence for stenosis. Trace regurgitation. LEFT ATRIUM: The atrium was normal in size. RIGHT VENTRICLE: The cavity size was normal. Wall thickness was normal. Systolic pressure was within the normal range. PULMONIC VALVE: Doppler: Transvalvular velocity was within the normal range. There was no evidence for stenosis. No regurgitation. TRICUSPID VALVE: Structurally normal valve. Doppler: Transvalvular velocity was within the normal range. No regurgitation. PULMONARY ARTERY: The main pulmonary artery was normal-sized. Systolic pressure was within the normal range. RIGHT ATRIUM: The atrium was normal in size. PERICARDIUM: There was no pericardial effusion. SYSTEMIC VEINS: Inferior vena cava: The vessel was normal in size. BASIC MEASUREMENTS ADULT Normal Left ventricle LV internal dimension, ED, chordal level, *41.2 mm 43-52 PLAX LV internal dimension, ES, chordal level, 30.6 mm 23-38 PLAX Fractional shortening, chordal level, PLAX *26 % >29 LV posterior wall thickness, ED 11 mm IVS/LVPW ratio, ED 1.02 <1.3 Ventricular septum Septal thickness, ED 11.2 mm Aortic valve Leaflet separation 20 mm 15-26 Right ventricle RV internal dimension, ED, PLAX 31.7 mm 19-38 BASIC MEASUREMENTS ADULT Normal Aortic valve Leaflet separation 20 mm 15-26 Aorta Root diameter, ED 36 mm 20-37 Left atrium Anterior-posterior dimension, ES 27 mm 19-40 LA/aortic root ratio 0.75 DOPPLER MEASUREMENTS ADULT Normal Main pulmonary artery Pressure, S *32 mm Hg =30 Mitral valve Peak E-wave velocity 34.6 cm/s Peak A-wave velocity 66.6 cm/s Peak E/A ratio 0.5 Tricuspid valve Regurgitant peak velocity 236 cm/s Peak RV-RA gradient, S 22 mm Hg Maximal regurgitant velocity 236 cm/s Systemic veins Estimated CVP 10 mm Hg Right ventricle RV pressure, S *32 mm Hg <30 LEGEND: Mean values are shown as u=mean value. Asterisk (*) gore values outside specified normal range. Prepared and signed by Sarita Cowart [id number]
--- NOTE | 2016-05-19 11:24 | EKG ---
Date Performed: 05/18/2016 Time Performed: 10:23:26 PTAGE: 60 years EKG: Sinus rhythm . Short FL interval Borderline ECG PREVIOUS TRACING : 05/17/2016 22.32 DOCTOR: Ab Perez Interpretating Date/Time 05/19/2016 11:21:36
== END 2016-05-18 16:16 | disposition home or self-care (01) | DRG 312 ==
LOC: PHED 07:14 → PHEDA 08:49 → PH3A 09:56 → OBSVTOIN 10:53 → PH3B 18:59
PROVIDERS: ADMIT Family Medicine; ATTEND Family Medicine
DX: I95.1 Orthostatic hypotension (principal); E23.1 Drug-induced hypopituitarism; E03.9 Hypothyroidism, unspecified; I45.81 Long QT syndrome; G89.4 Chronic pain syndrome; M54.2 Cervicalgia; F34.1 Dysthymic disorder; S00.12XA Contusion of left eyelid and periocular area, initial encounter; K31.84 Gastroparesis; R29.6 Repeated falls; Z91.19 Patient's noncompliance with other medical treatment and regimen; Z79.899 Other long term (current) drug therapy; Z85.820 Personal history of malignant melanoma of skin; Z92.21 Personal history of antineoplastic chemotherapy; Z91.5 Personal history of self-harm; T45.1X5D Adverse effect of antineoplastic and immunosuppressive drugs, subsequent encounter; W19.XXXA Unspecified fall, initial encounter; Y93.01 Activity, walking, marching and hiking
CPT/HCPCS: 70450; 71010; 80048; 80053; 81001; 82533; 82550; 82948; 84402; 84403; 84439; 84443; 84481; 84484; 85025; 93005; 93306; 96360; G8987-GP; G8988-GP; J1650; J7030